=== PATIENT | female | born 1950 | race Caucasian/White ===

== ENCOUNTER 2017-01-12 08:54 | Inpatient (IN) | payer OTHER ==
[~2017-01-12] VITALS: Ht 157.5 cm; Wt 71.7 kg
[~2017-01-12 08:54] MED LIST: BRIM5SOL1 RIGHT EYE; CARV12.5 PO; DORZ10SO3 RIGHT EYE; LEVEMIR SUBQ; LEVO500T6 PO; TIMO5SOL9 RIGHT EYE; [UNRECOGNIZED DRUG - CODE] LEFT EYE
[2017-01-12 09:08] VITALS: BP 159/82
--- NOTE | 2017-01-12 09:14 | NUR ---
Patient transferred to bed 4 via wheelchair by tech. RN evaluating patient at bedside.
--- NOTE | 2017-01-12 09:17 | NUR ---
66 F BIB MOM C/O GENERALIZED ABD PAIN AND "CHEST DISCOMFORT" WHEN SHE COUGHS; PT ALSO C/O DRY COUGH WITH RUNNY NOSE; RR ARE EVEN AND UNLABORED; PT IS AOX4; PT ALSO C/O INTERMITTENT DIARRHEA X 1 WEEK; MUCUS MEMBRANES ARE MOIST; PATIENT STATES PAIN OF 0/10 AT THIS TIME; VSS; PATIENT POSITIONED FOR COMFORT; HOB ELEVATED; BEDRAILS UP X2; BED DOWN. ER MD SECHRIST BY BEDSIDE EXAMINING PT. ALL NEEDS MET AT THIS TIME. WILL CONTINUE TO MONITOR.
--- NOTE | 2017-01-12 09:17 | NUR ---
Dr. Maynard evaluating patient at bedside.
--- NOTE | 2017-01-12 09:30 | NUR ---
EKG completed at bedside by EMT.
[2017-01-12 09:56] LABS: ANION GAP 13.1 (8-16); CARBON DIOXIDE 27.3 mmol/L (21-32)
[2017-01-12 10:00] LABS: POTASSIUM 6.4 mmol/L (3.5-5.1)
[2017-01-12 10:01] LABS: CREATININE 9.4 mg/dL (0.6-1.3)
[2017-01-12] MEDS ORDERED: DEXTROSE 50% 50 ML SYR IVP ONE ×2 (10:05→10:40)
[2017-01-12] MEDS ORDERED: SODIUM BICARBONATE 8.4% PFS 50 MEQ/50 ML SYR IVP ONE ×2 (10:05→10:40)
[2017-01-12] MEDS ORDERED: CALCIUM GLUCONATE 10% 1000 MG/10 ML VIAL IVP ONE ×2 (10:05→10:40)
[2017-01-12] MEDS ORDERED: INSULIN HUMAN REGULAR 100 UNITS/ML 10 ML VIAL IVP ONE ×2 (10:05→10:40)
[2017-01-12 10:08] LABS: WHITE BLOOD COUNT (AUTO) 2.8 K/uL (4.8-10.8)
[2017-01-12 10:09] LABS: HEMATOCRIT 33.7 % (36-48); HEMOGLOBIN 10.4 g/dL (12.0-16.0); MEAN CORPUSCULAR HEMOGLOBIN 32 pg (27-31); MEAN CORPUSCULAR HGB CONC 31 g/dL (33-37); MEAN CORPUSCULAR VOLUME 105 fL (80-94); PLATELET COUNT (AUTO) 26 K/uL (140-450); RED BLOOD CELL COUNT(AUTO) 3.21 MIL/uL (4.20-5.40); RED CELL DISTRIBUTION WIDTH 18.6 % (11.6-13.7)
--- NOTE | 2017-01-12 10:11 | NUR ---
Patient resting in gurney with eyes closed. No sign or symptoms of distress. Respirations even and unlabored.
[2017-01-12 10:12] LABS: EOSINOPHILS % (MANUAL) 2 % (0-4); LYMPHOCYTES % (MANUAL) 50 % (20-46); MONOCYTES % (MANUAL) 5 % (5-12)
--- NOTE | 2017-01-12 12:23 | NUR ---
Patient will be admitted to care of [facility]. Admited to Tele. Will go to room 124b. Belongings list completed. Report to Tiny genao .
--- NOTE | 2017-01-12 12:30 | NUR ---
PT ON UNIT FROM ER. PT RESTING IN BED. AAOX4. NO S/S OF ACUTE DISTRESS. PT DENIES PAIN. AV SHUNT TO LEFT ARM NOTED. BRUIT AND THRILL PRESENT. IV SITE PATENT AND INTACT. BRADY CATH PRESENT TO RIGHT UPPER CHEST. PT ORIENTED TO ROOM. CALL LIGHT WITHIN REACH. SAFETY MEASURES ENSURED. WILL CONTINUE TO MONITOR.
[2017-01-12] MEDS ORDERED: NACL 0.9% 1,000 ML IV SCH (12:46)
[2017-01-12] MEDS ORDERED: HYDROcodone/APAP 7.5/325 MG 1 TAB PO PRN (12:50)
[2017-01-12] MEDS ORDERED: ONDANSETRON 4 MG/2 ML VIAL IVP PRN (12:50)
[2017-01-12] MEDS ORDERED: ACETAMINOPHEN 325 MG TAB PO PRN (12:50)
[2017-01-12] MEDS ORDERED: NON-FORMULARY ITEM (Brimonidine Tartrate* (Alphagan P 0.15% Opth Soln*) 1 DROP) RIGHT EYE SCH (13:00)
[2017-01-12] MEDS ORDERED: NON-FORMULARY ITEM (Dorzolamide HCl/Timolol Maleat (Cosopt Eye Drops) 1 DROP) RIGHT EYE SCH (13:00)
[2017-01-12] MEDS ORDERED: DEXTROSE 50% 50 ML SYR IVP PRN (13:05)
[2017-01-12 13:44] VITALS: BP 173/76
--- NOTE | 2017-01-12 14:00 | NUR ---
DIALYSIS STARTED. WILL CONTINUE TO MONITOR.
[2017-01-12 14:14] LABS: PROTHROMBIN TIME 10.4 secs (10.8-13.4)
[2017-01-12 14:18] LABS: CHOL/HDL RATIO 2.1 (1-4.5)
[2017-01-12 14:26] LABS: FREE T4 (FREE THYROXINE) 1.4 ng/dL (0.76-1.46); MAGNESIUM 2.4 mg/dL (1.8-2.4); THYROID STIMULATING HORMONE 4.53 uIU/mL (0.34-3.74)
[2017-01-12 16:00] VITALS: BP 111/61
[2017-01-12] MEDS: BLOOD GLUCOSE MONITORING 1 DEV DEV FS SCH ×2 (16:44→20:37)
--- NOTE | 2017-01-12 17:32 | NUR ---
DIALYSIS FINISHED. 2.6L OUT. NO S/S OF ACUTE DISTRESS. PT DENIES PAIN. CALL LIGHT WITHIN REACH. SAFETY MEASURES ENSURED. WILL CONTINUE TO MONITOR.
--- NOTE | 2017-01-12 18:06 | NUR ---
PT REFUSED SCD'S. PT EDUCATED ON NEED FOR SCD'S BUT STILL REFUSED. SCD'S PLACED AT BEDSIDE.
[2017-01-12 18:41] LABS: ANION GAP 12.6 (8-16); CARBON DIOXIDE 27.3 mmol/L (21-32); POTASSIUM 3.9 mmol/L (3.5-5.1)
[2017-01-12 19:05] LABS: CREATININE 4.2 mg/dL (0.6-1.3)
--- NOTE | 2017-01-12 19:15 | NUR ---
ENDORSED PLAN OF CARE TO NIGHT RN. PT REMAINS STABLE.
--- NOTE | 2017-01-12 19:30 | NUR ---
RECEIVED FROM AM RN IN BED WITH INSPECTOR EYEGLASS DOING A PROCEDURE. AWAKE AND ALERT. BRADY CATHETER IN PLACE RIGHT UPPER CHEST. LEFT AV SHUNT INTACT AND NO BLEEDING. CALL LIGHT WITH IN REACH AND ENCOURAGED TO CALL FOR ANY HELP SHE MAY NEED OR IF IN PAIN. PT. LEGALLY BLIND. BED ALARM ON.
[2017-01-12 20:08] VITALS: BP 124/64
[2017-01-12] MEDS: DOCUSATE SODIUM 100 MG GELCAP PO SCH (20:37)
[2017-01-12] MEDS: INSULIN LISPRO SLIDING SCALE 100 UNITS/ML VIAL SUBQ PRN (20:37)
--- NOTE | 2017-01-12 20:39 | NUR ---
BLOOD SUGAR 164 . RISS COVERAGE OF 2 UNITS. REFUSED COLACE AT THIS TIME RT PER PT. "THEY GAVE ME MEDICATION RT MY POTASSIUM LEVEL WAS HIGH AND UP TO NOW I STILL HAVE LIQUIDY STOOL. " REFUSED COLACE. AWAKE AND ALERT. NO SOB.
--- NOTE | 2017-01-13 | NUR ---
SLEEPING. ABLE TO USE CALL LIGHT . BED ALARM ON. NO SOB. NO RESTLESSNESS NOTED.
[2017-01-13 02:01] VITALS: BP 110/57
--- NOTE | 2017-01-13 02:16 | NUR ---
SLEEPING WELL. NO COMPLAINTS DONE. TELEMETRY MONITORING AND CALL LIGHT WITH IN REACH. BED ALARM ON.
[2017-01-13 04:21] VITALS: BP 150/72
[2017-01-13] MEDS: BLOOD GLUCOSE MONITORING 1 DEV DEV FS SCH ×5 (06:02→20:54)
--- NOTE | 2017-01-13 07:08 | NUR ---
ENDORSED TO THE NEXT RN FOR CONTINUITY OF CARE. SLEPT WELL THIS SHIFT NO SOB. CALL LIGHT WITH IN REACH. TELEMETRY MONITORING.
--- NOTE | 2017-01-13 07:10 | NUR ---
RECEIVED REPORT FROM NIGHT RN AT BEDSIDE. PT SLEEPING IN BED. AAOX4. NO S/S OF ACUTE DISTRESS. IV SITE PATENT AND INTACT. RIGHT UPPER CHEST BRADY NOTED. LEFT AV SHUNT PRESENT WITH BRUIT AND THRILL. PT REFUSED SCD'S. LEFT AT BEDSIDE. PLAN OF CARE DISCUSSED WITH PT. TELE BOX IN PLACE. CALL LIGHT WITHIN REACH. WILL CONTINUE TO MONITOR.
[2017-01-13 08:00] VITALS: BP 138/71
--- NOTE | 2017-01-13 08:44 | NUR ---
PATIENT HAS BEEN SCREENED AND CATEGORIZED MODERATE NUTRITION RISK. PATIENT WILL BE SEEN WITHIN 3-5 DAYS OF ADMISSION. 01/15/17-01/17/[address]
[2017-01-13] MEDS ORDERED: INSULIN DETEMIR 100 UNITS/ML 10 ML VIAL SUBQ SCH (09:00)
[2017-01-13] MEDS ORDERED: PANTOPRAZOLE 40 MG INJ VIAL IVP SCH (09:00)
[2017-01-13] MEDS ORDERED: CARVEDILOL 12.5 MG TAB PO SCH (09:00)
[2017-01-13] MEDS: DOCUSATE SODIUM 100 MG GELCAP PO SCH ×2 (09:00→20:54)
[2017-01-13] MEDS ORDERED: TIMOLOL OP 0.5% 5 ML BTL RIGHT EYE SCH (09:00)
[2017-01-13] MEDS ORDERED: DIFLUPREDNATE LEFT EYE SCH (09:00)
[2017-01-13] MEDS ORDERED: ASPIRIN 81 MG TAB.CHEW PO SCH (09:29)
[2017-01-13] MEDS ORDERED: ATORVASTATIN 20 MG TAB PO SCH (09:30)
[2017-01-13 09:32] LABS: MAGNESIUM 1.9 mg/dL (1.8-2.4); PHOSPHORUS 4.2 mg/dL (2.5-4.9)
[2017-01-13 09:39] LABS: ANION GAP 12.3 (8-16); CARBON DIOXIDE 28.3 mmol/L (21-32); POTASSIUM 4.6 mmol/L (3.5-5.1)
--- NOTE | 2017-01-13 09:40 | NUR ---
AM MEDICATIONS GIVEN WITH EDUCATION. PT VERBALIZED UNDERSTANDING. WILL CONTINUE TO MONITOR.
[2017-01-13 09:41] LABS: HEMATOCRIT 32.6 % (36-48); MEAN CORPUSCULAR HEMOGLOBIN 32 pg (27-31); MEAN CORPUSCULAR HGB CONC 31 g/dL (33-37); MEAN CORPUSCULAR VOLUME 105 fL (80-94); RED BLOOD CELL COUNT(AUTO) 3.09 MIL/uL (4.20-5.40); RED CELL DISTRIBUTION WIDTH 18.5 % (11.6-13.7); WHITE BLOOD COUNT (AUTO) 2.5 K/uL (4.8-10.8)
[2017-01-13 09:43] LABS: CREATININE 6.4 mg/dL (0.6-1.3)
[2017-01-13 09:49] LABS: PLATELET COUNT (AUTO) 20 K/uL (140-450)
--- NOTE | 2017-01-13 09:53 | NUR ---
SPOKE TO [facility] REGARDING DIALYSIS. PER PT SHE DOESN'T WANT DIALYSIS TODAY.
[2017-01-13 10:06] LABS: LYMPHOCYTES % (MANUAL) 62 % (20-46); MONOCYTES % (MANUAL) 4 % (5-12)
--- NOTE | 2017-01-13 10:26 | NUR ---
FAXED RECORD REQUEST
--- NOTE | 2017-01-13 11:50 | NUR ---
PT SLEEPING IN BED. NO S/S OF ACUTE DISTRESS. CALL LIGHT WITHIN REACH. SAFETY MEASURES ENSURED. WILL CONTINUE TO MONITOR.
[2017-01-13 12:00] VITALS: BP 127/63
[2017-01-13] MEDS: INSULIN LISPRO SLIDING SCALE 100 UNITS/ML VIAL SUBQ PRN (12:25)
--- NOTE | 2017-01-13 15:13 | NUR ---
PT RESTING IN BED. NO S/S OF ACUTE DISTRESS. PT DENIES PAIN. CALL LIGHT WITHIN REACH. SAFETY MEASURES ENSURED. WILL CONTINUE TO MONITOR.
[2017-01-13 16:00] VITALS: BP 139/61
--- NOTE | 2017-01-13 17:55 | NUR ---
NOTIFIED [facility] OF DIALYSIS ORDER FOR TOMORROW.
--- NOTE | 2017-01-13 19:17 | NUR ---
ENDORSED PLAN OF CARE TO NIGHT RN. PT REMAINS STABLE.
--- NOTE | 2017-01-13 19:17 | NUR ---
RECEIVED PATIENT REPORT AT BEDSIDE FROM MORNING NURSE. PATIENT AWAKE, ALERT AND ORIENTED. NO SIGNS AND SYMPTOMS OF DISTRESS NOTED. NO COMPLAINTS OF PAIN AT THIS TIME. IV SITE NOTED ON RIGHT WRIST. RIGHT UPPER CHEST BRADY NOTED. LEFT AV SHUNT, WITH BRUIT AND THRILL NOTED. TELE BOX IN PLACE. BED IN LOWEST POSITION, SIDE RAILS UP AND CALL LIGHT WITHIN REACH.
[2017-01-13 20:00] VITALS: BP 144/71
--- NOTE | 2017-01-13 21:00 | NUR ---
CHECKED ON PATIENT, PATIENT IS RESTING IN BED, AND TALKING ON THE PHONE TO A FAMILY MEMBER. NO SIGNS AND SYMPTOMS OF DISTRESS NOTED. WILL CONTINUE TO MONITOR.
[2017-01-14] VITALS: BP 149/73
--- NOTE | 2017-01-14 | NUR ---
CHECKED ON PATIENT. PATIENT IS ASLEEP IN BED. NO SIGNS AND SYMPTOMS OF DISTRESS NOTED. WILL CONTINUE TO MONITOR.
--- NOTE | 2017-01-14 02:00 | NUR ---
CHECKED ON PATIENT. PATIENT IS ASLEEP IN BED. NO SIGNS AND SYMPTOMS OF DISTRESS NOTED. WILL CONTINUE TO MONITOR.
[2017-01-14 04:00] VITALS: BP 140/67
--- NOTE | 2017-01-14 04:30 | NUR ---
CHECKED ON PATIENT. PATIENT IS ASLEEP IN BED. NO SIGNS AND SYMPTOMS OF DISTRESS NOTED. WILL CONTINUE TO MONITOR.
--- NOTE | 2017-01-14 05:30 | NUR ---
DR. SANTOS INFORMED ME THAT PATIENT NEEDS TO BE DISCHARGED BY 9AM SO THAT THE PATIENT CAN MAKE HER DIALYSIS APPOINTMENT AT [facility].
[2017-01-14] MEDS: BLOOD GLUCOSE MONITORING 1 DEV DEV FS SCH (06:58)
--- NOTE | 2017-01-14 07:26 | NUR ---
PATIENT REPORT GIVEN AT BEDSIDE TO MORNING NURSE. PATIENT IS IN STABLE CONDITION.
--- NOTE | 2017-01-14 08:23 | NUR ---
PATIENT DISCHARGED ACCOMPANIED BY DAUGHTER. WILL GO TO [facility] FOR 10 AM APPOINTMENT. IV REMOVED INTACT. Addendum: 01/14/17 at 1055 by Agency Xiomara PETERS RN ASSESSMENT COMPLETE, WILL DOCUMENT LATER.
[2017-01-14] MEDS ORDERED: ATORVASTATIN 20 MG TAB PO SCH (09:00)
[2017-01-14] MEDS ORDERED: ASPIRIN 81 MG TAB.CHEW PO SCH (09:00)
[2017-01-14 10:36] VITALS: BP 176/84
== END 2017-01-14 08:20 | disposition home or self-care (01) | DRG 291 ==
LOC: MED 08:54 → MTU 12:46
PROVIDERS: ADMIT Family Medicine; ATTEND Family Medicine
PROC: 5A1D00Z (ICD-10-PCS; principal; 2017-01-12)
DX: I13.2 Hypertensive heart and chronic kidney disease with heart failure and with stage 5 chronic kidney disease, or end stage renal disease (principal); I50.43 Acute on chronic combined systolic (congestive) and diastolic (congestive) heart failure; J96.00 Acute respiratory failure, unspecified whether with hypoxia or hypercapnia; N17.0 Acute kidney failure with tubular necrosis; D69.3 Immune thrombocytopenic purpura; N18.6 End stage renal disease; E11.22 Type 2 diabetes mellitus with diabetic chronic kidney disease; D68.59 Other primary thrombophilia; E11.51 Type 2 diabetes mellitus with diabetic peripheral angiopathy without gangrene; E11.65 Type 2 diabetes mellitus with hyperglycemia; J44.9 Chronic obstructive pulmonary disease, unspecified; E87.5 Hyperkalemia; I16.0 Hypertensive urgency; E02 Subclinical iodine-deficiency hypothyroidism; D63.1 Anemia in chronic kidney disease; H54.0 Blindness, both eyes; D53.9 Nutritional anemia, unspecified; E11.319 Type 2 diabetes mellitus with unspecified diabetic retinopathy without macular edema; D46.9 Myelodysplastic syndrome, unspecified; Z88.0 Allergy status to penicillin; Z99.2 Dependence on renal dialysis; Z83.3 Family history of diabetes mellitus; Z79.4 Long term (current) use of insulin; Z91.15 Patient's noncompliance with renal dialysis
CPT/HCPCS: 36415; 71010; 80048; 82140; 82948; 83036; 83605; 83735; 83880; 84100; 84439; 84443; 84484; 85025; 85610; 85730; 87040; 87081; 93005; 93925; 93970; 96374; 96375; 99285; J0610; J1815; J7030; Q0092